=== PATIENT | female | born 1995 | race Caucasian/White ===

== ENCOUNTER 2018-09-07 15:39 | Emergency (ER) | payer SELFPAY ==
--- NOTE | 2018-09-07 16:41 | RAD ---
PORTABLE CHEST 09/07/18 PROVIDED CLINICAL HISTORY: Chest tightness. FINDINGS: The cardiac and mediastinal silhouette is within normal limits. No focal consolidation, pleural fluid or pneumothorax apparent. IMPRESSION: No evidence for an acute cardiopulmonary process. POS: OFF
== END 2018-09-07 16:53 | disposition home or self-care (01) ==
LOC: EDBD 15:39 → NAV ERS 15:39
DX: R07.89 Other chest pain (principal); R11.2 Nausea with vomiting, unspecified
CPT/HCPCS: 71045; 93005